=== PATIENT | male | born 1975 | race Caucasian/White ===

== ENCOUNTER 2017-09-09 22:35 | Emergency (ER) | payer MEDICAID ==
--- NOTE | 2017-09-09 23:07 | ED Physician Chart ---
ED Chief Complaint/HPI - Patient Information Date Seen:: 09/09/17 Time Seen:: 22:45 Chief Complaint:: R flank pain since this morning. History of Present Illness:: Brought in by private auto because of onset of R flank pain since about 8 am today. Pain is characterized as sharp, constant with radiation to R groin. No known aggravating or relieving factors. No fever, or N/V/D. Last BM at about 8 pm that was normal in color/consistency. No hematochezia or melena. No dysuria, urgency or frequency with urination. No gross hematuria. Allergies:: Allergies Allergy/AdvReac Type Severity Reaction Status Date / Time No Known Allergies Allergy Verified 09/09/17 22:50 Vitals:: Vital Signs - 8 hr 09/09/17 22:40 Temp 98.0 F HR 99 RR 18 BP 138/93 O2 Sat % 97 Historian:: Patient Family MD/PCP:: Dr. Fuller LMP:: N/A Review:: Nurse's Note Reviewed ED Review of Systems - Review of Systems General/Constitutional: No fever, No chills, No weight loss, No weakness, No diaphoresis, No edema, No loss of appetite Skin: No rash, No bruising Head: No headache, No light-headedness Eyes: No loss of vision, No pain, No diplopia ENT: No earache, No nasal drainage, No sore throat Neck: No neck pain, No swelling, No thyromegaly, No stiffness, No mass noted Cardio Vascular: No chest pain, No palpitations, No edema Pulmonary: No SOB, No cough, No wheezing GI: No nausea, No vomiting, No diarrhea, Pain, No melena, No hematochezia, No constipation, No hematemesis G/U: No dysuria, No frequency, No hematuria Musculoskeletal: No bone or joint pain Endocrine: No polyuria, No polydipsia Psychiatric: No prior psych history Hematopoietic: No bruising, No lymphadenopathy Allergic/Immuno: No urticaria, No angioedema Neurological: No syncope, No focal symptoms, No weakness, No paresthesia, No headache, No dizziness, No confusion ED Past Medical History - Past Medical History Past Medical History: Asthma/COPD Family History: Diabetes Melitus (PGM, P uncle and aunts.) Social History: Smoker, No Alcohol, No Drug Use Medication: Reviewed Family Medical History - Family Member Mother History Unknown: Yes ED Physical Exam - Physical Examination General/Constitutional: Awake, Well-developed, well-nourished, Alert, GCS 15, Non-toxic appearing, Ambulatory Other Gen/Cons comments:: Breathes comfortably, speaks clearly, and interacts normally. Pt is in mild distress due to R flank pain. Head: Atraumatic Eyes: Lids, conjuctiva normal, PERRL, EOMI Other Eyes comments:: No scleral icterus. Skin: Nl inspection, No rash, No skin lesions, No ecchymosis, Well hydrated, No lymphadenopathy ENMT: External ears, nose nl, Nasal exam nl, Lips, teeth, gums nl, Oropharynx nl Neck: Nontender, Full ROM w/o pain, No JVD, No nuchal rigidity, No mass, No stridor Respiratory: Nl effort/Exclusion, Clear to Auscultation, No Wheeze/Rhonchi/Rales Cardio Vascular: RRR, No murmur, gallop, rubs GI: No organomegaly, No hernia, Normal BS's, Nondistended, No mass/bruits, No McBurney tenderness Other GI comments:: Obese but soft. Tenderness at R flank. No R/G. : No CVA tenderness Extremities: No tenderness or effusion, No edema Neuro/Psych: Alert/oriented (oriented x 3), Judgement/insight normal, Mood normal, Normal gait, No focal deficits ED Labs/Radiology/EKG Results - Lab Results Results: Laboratory Tests 09/09/17 09/09/17 09/09/17 23:45 23:45 23:45 WBC 10.6 RBC 5.37 Hgb 15.1 Hct 45.3 MCV 84.4 MCH 28.2 MCHC Differential 33.4 RDW 12.8 Plt Count 288 MPV 7.6 Neutrophils % 49.1 Lymphocytes % 38.2 Monocytes % 9.1 Eosinophils % 3.1 Basophils % 0.5 PT 10.1 INR 0.97 PTT (Actin FS) 26.7 Sodium Potassium Chloride Carbon Dioxide Anion Gap BUN Creatinine Est GFR ( Amer) Est GFR (Non-Af Amer) BUN/Creatinine Ratio Glucose Calcium Total Bilirubin AST ALT Alkaline Phosphatase Total Protein Albumin Globulin Albumin/Globulin Ratio Amylase Lipase Urine Source CLEAN C Urine Color YELLOW Urine Clarity CLEAR Urine pH 6.0 Ur Specific [place] 1.020 Urine Protein NEGATIVE Urine Glucose (UA) NEGATIVE Urine Ketones NEGATIVE Urine Blood SMALL H Urine Nitrate NEGATIVE Urine Bilirubin NEGATIVE Urine Urobilinogen 0.2 Ur Leukocyte Esterase NEGATIVE Urine RBC 2-5 H Urine WBC 0-2 Ur Epithelial Cells OCCASIONAL Urine Bacteria OCCASIONAL 09/09/17 23:45 WBC RBC Hgb Hct MCV MCH MCHC Differential RDW Plt Count MPV Neutrophils % Lymphocytes % Monocytes % Eosinophils % Basophils % PT INR PTT (Actin FS) Sodium 138 Potassium 3.5 Chloride 107 Carbon Dioxide 25.8 Anion Gap 8.7 BUN 17 Creatinine 1.2 Est GFR ( Amer) > 60.0 Est GFR (Non-Af Amer) > 60.0 BUN/Creatinine Ratio 14.2 Glucose 118 Calcium 9.2 Total Bilirubin 0.3 AST 16 ALT 26 Alkaline Phosphatase 63 Total Protein 6.2 Albumin 3.9 L Globulin 2.3 Albumin/Globulin Ratio 1.7 Amylase 38 Lipase 28 Urine Source Urine Color Urine Clarity Urine pH Ur Specific [place] Urine Protein Urine Glucose (UA) Urine Ketones Urine Blood Urine Nitrate Urine Bilirubin Urine Urobilinogen Ur Leukocyte Esterase Urine RBC Urine WBC Ur Epithelial Cells Urine Bacteria - Radiology Results Results: CT of abdomen and pelvis without contrast: Normal appendix. Small ovoid fatty lesion in the right lower quadrant just inferior to the cecum. Coronal series 3 image 42. Mild surrounding stranding. May represent epiploic appendagitis. No free air, free fluid or bowel obstrcution. No hydronephrosis or obstructing urinary tract calculus. Small fat-containing inguinal hernia. Official report per Dr. Nella Smith, radilologist. ED Septic Shock - . Is Septic Shock (SBP<90, OR Lactate>4 mmol\L) present?: No - <6hrs of presentation: Vital Signs: Vital Signs - 8 hr 09/09/17 22:40 Temp 98.0 F HR 99 RR 18 BP 138/93 O2 Sat % 97 ED Reassessment (Disposition) - Reassessment Reassessment:: 0050 Pt has been repeatedly evaluated. His abdominal pain has resolved. No N/V/ D. Remaining lab results and CT report just became available. Lab and CT findings have been reviewed with pt. Pt requests to go home now and does not want further observation/management in hospital. He will follow with PCP Dr. Fuller tomorrow. Aftercare instructions have been given. Copies of lab results and CT report have been given to pt to take to PCP Dr. Fuller for follow up tomorrow. Reassessment Condition:: Improved - Diagnosis Diagnosis:: Abdominal pain c/w urolithiais with probable spontaneous passage of renal stone. Stable and currently asymptomatic. - Aftercare/Follow up Instructions Aftercare/Follow-Up Instructions:: Refer to Discharge Instructions Notes:: Bedrest for today. Increase oral fluid. Clear liquid diet for now. Strain all urines. If renal stone is isolated, save and bring to lab or PCP for chemical analysis. Abdominal pain instructions given. F/U with PCP Dr. Fuller in one day as planned for follow up. Return to ER immediately if condition worsens or if any further questions/problems. Medication Prescribed:: None - Patient Disposition Discharge/Transfer:: Home Time:: 01:05 Condition at Disposition:: Stable, Improved ED Discharge Plan - Patient Disposition Admit/Discharge/Transfer: PT DISCHARGED HOME Condition at Disposition: Stable Instructions: Abdominal Pain, [id number] Additional Instructions: FOLLOW UP WITH PMD TOMORROW, STOP SMOKING, DRINK LOTS OF WATER, GO BACK TO EMERGENCY ROOM IF SYMPTOMS WORSEN.
[2017-09-09 23:52] LABS: URINE MICROSCOPIC INDICATED? YES; URINE SOURCE CLEAN C
[2017-09-09 23:54] LABS: % BASOPHILS 0.5 % (0.0-2.0); % EOSINOPHILS 3.1 % (0.0-5.0); % LYMPHOCYTES 38.2 % (20.0-50.0); % MONOCYTES 9.1 % (2.0-10.0); % NEUTROPHILS 49.1 % (40.0-80.0); BASOPHILE ABSOLUTE 0.1 Th/cumm (0-0.2); EOSINOPHILE ABSOLUTE 0.3 Th/cmm (0.1-0.4); HEMATOCRIT 45.3 % (41.0-60); HEMOGLOBIN 15.1 gm/dL (12-16); MEAN CELL VOLUME 84.4 fl (80-99); MEAN CORPUSCULAR HEMOGLOBIN 28.2 pg (26.0-30.0); MEAN CORPUSCULAR HGB CONC 33.4 pg (28.0-36.0); MEAN PLATELET VOLUME 7.6 fl; NEUTROPHILE ABSOLUTE 5.2 Th/cmm (1.8-8.0); PLATELET COUNT 288 Th/cmm (150-400); RED BLOOD COUNT 5.37 Mil/cmm (4.30-5.70); RED CELL DISTRIBUTION WIDTH 12.8 % (11.5-20.0); WHITE BLOOD COUNT 10.6 Th/cmm (4.8-10.8)
[2017-09-09 23:58] LABS: URINE BILIRUBIN NEGATIVE (NEGATIVE); URINE BLOOD SMALL (NEGATIVE); URINE GLUCOSE (UA) NEGATIVE (NEGATIVE); URINE KETONE NEGATIVE (NEGATIVE); URINE LEUKOCYTE ESTERASE NEGATIVE (NEGATIVE); URINE NITRATE NEGATIVE (NEGATIVE); URINE PROTEIN NEGATIVE (NEGATIVE); URINE UROBILINOGEN 0.2 E.U./dL (0.2 - 1.0)
[2017-09-10 00:01] LABS: URINE CLARITY CLEAR (CLEAR); URINE COLOR YELLOW
[2017-09-10 00:08] LABS: INR 0.97 (0.5-1.4); PROTHROMBIN TIME (TEST) 10.1 SECONDS (9.5-11.5)
[2017-09-10 00:17] LABS: ALB/GLOB RATIO 1.7 (1.0-1.8); ALBUMIN 3.9 gm/dL (4.2-5.5); ALKALINE PHOSPHATASE 63 U/L (34-104); AMYLASE SERUM 38 U/L (29-103); ANION GAP 8.7 (7.0-16.0); BILIRUBIN,TOTAL 0.3 mg/dL (0.3-1.0); BUN - UREA NITROGEN 17 mg/dL (7-25); CALCIUM SERUM 9.2 mg/dL (8.6-10.3); CARBON DIOXIDE 25.8 mEq/L (21.0-31.0); CHLORIDE 107 mEq/L (98-107); CREATININE - SERUM 1.2 mg/dL (0.7-1.3); GFR AFRICAN-AMERICAN > 60.0 ml/min (>90); GFR NON AFRICAN-AMERICAN > 60.0 ml/min; GLUCOSE 118 mg/dL; LIPASE 28 U/L (11-82); POTASSIUM SERUM 3.5 mEq/L (3.5-5.1); SGOT 16 U/L (13-39); SGPT/ALT 26 U/L (7-52); SODIUM SERUM 138 mEq/L (136-145); TOTAL PROTEIN,SERUM 6.2 gm/dL (6.0-8.3)
[2017-09-10 00:22] LABS: URINE BACTERIA OCCASIONAL /hpf (NONE SEEN); URINE EPITHELIAL CELLS OCCASIONAL /lpf (FEW); URINE WBC 0-2 /hpf (0-5)
--- NOTE | 2017-09-10 09:28 | Diagnostic Imaging Report ---
Exam: CT examination abdomen pelvis. HISTORY: Right flank pain. Total DLP equals 830 CTDI equals 14.7 Findings: Multiple contiguous thin section of the abdomen pelvis obtained from lower thorax to pubic symphysis without the administration of oral or intravenous contrast material. No prior studies available comparison. The study demonstrates normal aeration of lung parenchyma the bases The liver and spleen intact. The gallbladder is contracted. The study pancreas is normal. Adrenal glands are normal. The kidneys demonstrate no evidence of obstructive uropathy or nephrolithiasis. No free fluid is noted. The appendix is intact. Atherosclerotic calcification of abdominal aorta identified. The urinary bladder is normal. Bilateral inguinal hernias containing fat appreciated. IMPRESSION: Essentially unremarkable examination of the abdomen and pelvis.
== END 2017-09-10 01:15 | disposition home or self-care (01) ==
LOC: ER 22:35
DX: N20.9 Urinary calculus, unspecified (principal); R10.9 Unspecified abdominal pain; J45.909 Unspecified asthma, uncomplicated; J44.9 Chronic obstructive pulmonary disease, unspecified; F17.200 Nicotine dependence, unspecified, uncomplicated
CPT/HCPCS: 99285; 96374; 36415; 85025; 85610; 81001; 82150; 83690; 80053; 74176; J1885; 81003-TC